=== PATIENT | female | born 1995 | race African-American/Black ===

== ENCOUNTER → 2017-04-20 | Outpatient (CLI) | payer OTHER ==
--- NOTE | 2017-04-20 09:45 | KCIC ---
CT ABDOMEN PELVIS WO CONTRAST dated 04/20/2017 8:30 AM Indication: Left flank pain, intermittent pain for a few years, evaluate for stones pain Comparison: No comparison is available. Technique: Contiguous axial imaging the abdomen and pelvis performed without the administration of intravenous contrast. One or more of the following individualized dose reduction techniques were utilized for this examination: 1. Automated exposure control 2. Adjustment of the mA and/or kV according to patient size 3. Use of iterative reconstruction technique Findings: Kidneys are symmetric in size and attenuation. No calcific renal or ureteral stone. No hydronephrosis. No inflammatory changes in the perinephric fat. Solid abdominal viscera are not well evaluated in the absence of contrast material. No apparent attenuation abnormality of the liver or spleen. Pancreas, adrenal glands and gallbladder are unremarkable. Unopacified GI tract normal in caliber and contour. No focal bowel wall thickening. No inflammatory stranding in the mesentery. The appendix is normal in caliber. No ascites or lymphadenopathy. Abdominal aorta normal in caliber. Images of the pelvis showed nondistended urinary bladder. There is suggestion of mild diffuse bladder wall thickening. No calcific bladder stone. Uterus and adnexa are unremarkable. No free fluid or lymphadenopathy. Limited images of lung bases are clear. Heart size within normal limits. No pleural or pericardial effusion. Bone windows show no acute findings. Impression: 1. No acute abnormality of the abdomen or pelvis. No evidence of renal stone or hydronephrosis. 2. Suggestion of mild diffuse wall thickening of the urinary bladder, nonspecific. Consider acute or chronic cystitis. Electronically signed by: Torres Yi MD (04/20/2017 9:42 AM)
== END | disposition home or self-care (01) ==
LOC: KCIC CT 08:07
PROVIDERS: ATTEND Family Medicine
DX: N30.20 Other chronic cystitis without hematuria (principal)
CPT/HCPCS: 74176